=== PATIENT | female | born 1975 | race Caucasian/White ===

== ENCOUNTER 2020-05-19 03:17 | Emergency (ER) | payer BC, SELFPAY ==
--- NOTE | ~2020-05-19 | CT_ITS ---
EXAMINATION: CT abdomen pelvis w con DATE: 05/19/2020 04:36 INDICATION: Lower abdominal pain for 2 hours. Bloating. TECHNIQUE: Computed tomography (CT) of the abdomen and pelvis was performed with 100 cc Omnipaque 350 intravenous contrast. Automated exposure control and iterative reconstruction technique were employe d. Exam dose: 262.28 mGy-cm total exam DLP. COMPARISON: None. FINDINGS: The lung bases are clear. Normal heart size. No pericardial or pleural effusion. The liver, gallbladder, bile ducts, spleen, pancreas and pancreatic duct as well as adrenal glands an d kidneys appear normal. Normal caliber of the abdominal aorta. No intraperitoneal or retroperitoneal or pelvic mass lesion or adenopathy or ascites. Prominent amount of fecal material in the rectum and colon but no bowel obstruction, pneumatosis or i ntraperitoneal free air. There is suggestion of some thickening of the wall of the descending and sig moid colon subtle pericolic fat stranding which might indicate colitis. Clinical correlation is advis ed. The uterus, adnexal areas and urinary bladder are unremarkable. Severe degenerative disease at L5-S1. IMPRESSION: Prominent amount fecal material in the rectum and colon but no bowel obstruction Mild nonspecific thickening of the wall of the sigmoid and descending colon; colitis is not excluded Severe degenerative disc disease at L5-S1 Reviewed, dictated and finalized at [facility]. Reviewed, dictated and finalized at [facility]. IMPRESSION: Prominent amount fecal material in the rectum and colon but no bow el obstruction Mild nonspecific thickening of the wall of the sigmoid and descending colon; co litis is not excluded Severe degenerative disc disease at L5-S1
[2020-05-19 03:20] VITALS: BP 154/79; PULSE 95; RESP 20; TEMP 36.6; O2SAT 99
[2020-05-19] MEDS: ONDANSETRON INJ 4 MG/2 ML VIAL IV PUSH (03:32)
[2020-05-19] MEDS: MORPHINE SULFATE (*CRX) 4 MG/ML INJ IV PUSH (03:32)
[2020-05-19 03:51] LABS: Basophils Absolute Auto 0.02 K/mm3 (0.00-0.10); Basophils Percent Auto 0.3 % (0.0-1.0); Eosinophils Absolute Auto 0.17 K/mm3 (0.02-0.50); Eosinophils Percent Auto 2.6 % (1.0-6.0); Hematocrit 41.3 % (35.0-49.0); Hemoglobin 13.7 g/dL (12.0-15.0); Immature Granulocyte Absolute 0.03 K/mm3 (0.00-0.00); Immature Granulocyte Percent A 0.5 % (0.0-0.0); Lymphocytes Absolute Auto 1.49 K/mm3 (1.10-4.50); Mean Corpuscular HGB Conc 33.2 g/dL (32.0-36.0); Mean Corpuscular Hemoglobin 29.8 pg (27.0-31.0); Mean Platelet Volume 10.3 fl (9.2-11.8); Monocytes Absolute Auto 0.48 K/mm3 (0.10-0.90); Monocytes Percent Auto 7.4 % (2.0-11.0); Neutrophils Absolute Auto 4.3 K/mm3 (1.7-7.2); Neutrophils Percent Auto 66.2 % (50.0-70.0); Platelet Count Result 192 K/mm3 (150-420); Red Blood Count 4.59 M/mm3 (4.20-5.40); Red Cell Distribution Width 12.4 % (11.6-14.4); White Blood Count 6.5 K/mm3 (4.8-10.8)
[2020-05-19 04:09] LABS: Alanine Aminotransferase 24 U/L (14-59); Albumin Level 3.8 g/dL (3.4-5.0); Alkaline Phosphatase 42 U/L (46-116); Anion Gap 15 mmol/L (8-16); Aspartate Amino Transferase 14 U/L (15-37); Bilirubin,Total 0.5 mg/dL (0.00-1.00); Blood Urea Nitrogen 11 mg/dL (7-18); Carbon Dioxide 25 mmol/L (21-32); Chloride 103 mmol/L (98-108); Estimated CRCL calculation 48 ml/min; Estimated Glomerular Filt Rate 56; Glucose 117 mg/dL (70-99); Lipase 186 U/L (73-393); Osmolality Calculated 296 mOsm/kg (285-295); Potassium 3.7 mmol/L (3.5-5.1); Sodium 143 mmol/L (136-145); Total Protein 7.1 g/dL (6.4-8.2)
[2020-05-19 04:11] LABS: Add Urine Microscopic? YES; Appearance Urine Clear (Clear); Bilirubin Urine Negative (Negative); Blood Urine 2+ (Negative); Color Urine Yellow (Yellow); Glucose Urine UA Negative (Negative); Ketones Urine Negative (Negative); Leukocyte Esterase Ur Negative (Negative); Nitrate Urine Negative (Negative); Protein Urine Negative (Negative)
[2020-05-19 04:14] LABS: Pregnancy On Board Control Positive; Urine Pregnancy Test Negative
[2020-05-19 04:17] LABS: Bacteria Urine Trace /hpf; RBC Urine 21-50 /hpf (0-2); Squamous Epithelial Cell Urine None seen /hpf (Few); WBC Urine 0-3 /hpf (0-3)
[2020-05-19] MEDS: SODIUM CHLORIDE 0.9% IV 1,000 ML 999 ML IV CONT (04:31)
[2020-05-19 05:17] VITALS: BP 136/88; PULSE 83; RESP 18; O2SAT 100
--- NOTE | 2020-05-19 05:22 | ED.ABDPAIN ---
HPI - Abdominal Pain General Chief Complaint: Abdominal Pain Stated Complaint: adominal pain Source: patient History of Present Illness HPI narrative: This is a 45-year-old female presents with some abdominal pain lower abdomen periumbilical intense 10/10 with some constipation and episodes of nausea and vomiting. The patient has a history of hypothyroidism and history of depression. Currently there is no fever or chills no dysuria no hematuria no flank pain. The patient has had lower caliber stools today but over the past week has been more constipated. Her abdomen is soft mildly tender with normal bowel sounds. MD elicited complaint: abdominal pain Pertinent past history: constipation Onset (ago): hour(s) Pain Consistency: intermittent Location: periumbilical and suprapubic Severity: severe Pain scale (0-10): 10 Quality: cramping, fullness and sharp Radiation: suprapubic Migration to: periumbilical Exacerbating factors: nothing Relieving factors: medication Associated symptoms: nausea, vomiting and constipation Related Data Home Medications Medication Instructions Recorded Confirmed doxycycline monohydrate 50 mg PO DAILY 05/19/20 05/19/20 ethynodiol diac-eth estradiol 1 tablet PO DAILY 05/19/20 05/19/20 [Kelnor 1-50] levothyroxine 88 mcg PO DAILY 05/19/20 05/19/20 trazodone 100 mg PO HS 05/19/20 05/19/20 venlafaxine 75 mg PO BID 05/19/20 05/19/20 Allergies Allergy/AdvReac Type Severity Reaction Status Date / Time Penicillins Allergy Unknown Verified 05/19/20 03:28 Review of Systems Review of Systems: All systems reviewed & are unremarkable except as noted in HPI and below PMFSH Past Medical History Medical History Hypothyroidism (acquired) Exam Const: General: no acute distress and alert Orientation/consciousness: patient oriented x3 HENMT: Head: normal to inspection Eyes: Conjunctivae: conjunctivae normal Pupils: Equal, round and reactive pupils present EOM: EOMs intact bilaterally Neck: Neck: normal visual inspection, no lymphadenopathy and no meningeal signs Chest: Chest palpation & inspection: normal inspection of the chest Resp: Effort & Inspection: normal respiratory effort Auscultation: clear to auscultation bilaterally Cardio: Rate: regular rate Rhythm: regular rhythm GI: GI Palp: Yes Soft to palpation and Yes Tenderness to palpation present (GI) ( periumbilical and suprapubic area) Auscultation: normal bowel sounds : General: Yes no CVA tenderness Urinary Catheter: Urinary Catheter: patent and draining Back/Spine/Pelvis: Back: no CVA tenderness Skin: General skin exam: normal color Rashes: no rashes Neuro: General: patient oriented x3 Extrem: General: normal to inspection Psych: Mental Status: mental status grossly normal Course Course Emergency Course: reassessment of patient pain level as significantly decreased with currently no nausea or vomiting, patient had lab work which was explained to the patient and results given, and CT scan of her abdomen and pelvis results were reviewed with patient and family. Vital Signs Vital signs: Vital Signs Temperature 36.6 C 05/19/20 03:20 Pulse Rate 95 05/19/20 03:20 Respiratory Rate 20 05/19/20 03:20 Blood Pressure 154/79 H 05/19/20 03:20 Pulse Oximetry 99 05/19/20 03:20 Temperature 36.6 C 05/19/20 03:20 Pulse Rate 83 05/19/20 05:17 Respiratory Rate 18 05/19/20 05:17 Blood Pressure 136/88 05/19/20 05:17 Pulse Oximetry 100 05/19/20 05:17 MDM - Abdominal Pain Lab Data Result diagrams: 05/19/20 03:46 05/19/20 03:46 Labs: Lab Results 05/19/20 05/19/20 05/19/20 Range/Units 03:46 03:46 03:46 WBC 6.5 (4.8-10.8) K/mm3 RBC 4.59 (4.20-5.40) M/mm3 Hgb 13.7 (12.0-15.0) g/dL Hct 41.3 (35.0-49.0) % MCV 90.0 (78.0-102.0) fL MCH 29.8 (27.0-31.0) pg MCHC 33.2 (32.0
[2020-05-19 05:25] VITALS: BP 130/75; PULSE 82; RESP 20; TEMP 36.6; O2SAT 100
[2020-05-19 06:50] LABS: Reflex Lactic Acid Yes or No Add Lactic
== END 2020-05-19 05:35 | disposition home or self-care (01) ==
PROVIDERS: Emergency Provider Emergency Medicine
DX: K52.9 Noninfective gastroenteritis and colitis, unspecified (principal); K59.00 Constipation, unspecified
CPT/HCPCS: 36415; 74177; 80053; 81001; 81025; 83605; 83690; 85025; 85610; 96361; 96374; 96375; 99283; 99284; J2270; J2405; J7030; Q9965

== ENCOUNTER 2020-06-22 15:57 | Outpatient (CLI) | payer BC, SELFPAY ==
[2020-06-22 17:16] LABS: Erythrocyte Sedimentation Rate 6 mm/hr (0-15)
[2020-06-22 17:43] LABS: CRP < 0.2 mg/dL (0.0-0.9)
[2020-06-27 06:04] LABS: Immunoglobulin E 5 kU/L (<=114)
[2020-06-27 11:15] LABS: Immunoglobulin A 194 mg/dL (47-310); Immunoglobulin G 1019 mg/dL (600-1640); Immunoglobulin M 46 mg/dL (50-300)
[2020-06-27 22:30] LABS: ANA Titer 1:40 (Negative); Anti Nuclear Antibody Titer 1:40 (Negative)
[2020-06-28 11:25] LABS: Reference Lab Test Name TRYPTASE
[2020-06-28 12:12] LABS: Gliadin AB, IgG 4 Units (<20); Reticulin IgA Negative (Negative); TTG IGA AB 1 U/mL (<4)
== END 2020-06-22 15:58 | disposition home or self-care (01) ==
PROVIDERS: PCP Family Medicine
DX: D47.09 Other mast cell neoplasms of uncertain behavior (principal); T78.1XXD Other adverse food reactions, not elsewhere classified, subsequent encounter; M35.9 Systemic involvement of connective tissue, unspecified; K90.0 Celiac disease; L29.9 Pruritus, unspecified
CPT/HCPCS: 36415; 82784; 82785; 83088; 83516; 83520; 85652; 86003; 86038; 86039; 86140; 86255

== ENCOUNTER 2020-07-20 10:32 | Outpatient (CLI) | payer BC, SELFPAY ==
[2020-07-20 10:49] LABS: Appearance Urine Clear (Clear); Bilirubin Urine Negative (Negative); Color Urine Yellow (Yellow); Glucose Urine UA Negative (Negative); Ketones Urine Negative (Negative); Leukocyte Esterase Ur Negative (Negative); Nitrate Urine Negative (Negative); Protein Urine Negative (Negative); Specific Grav Ur <= 1.005 (1.010-1.020); Urobilinogen Urine 0.2 mg/dL (0.2-1.0); pH Urine 5.5 (5.0-8.0)
[2020-07-20 10:53] LABS: Add Urine Microscopic? YES; Bacteria Urine Trace /hpf; Blood Urine Trace-lysed (Negative); RBC Urine 0-2 /hpf (0-2); Squamous Epithelial Cell Urine Few /hpf (Few); WBC Urine 0-3 /hpf (0-3)
[2020-07-20 11:22] LABS: Alanine Aminotransferase 22 U/L (14-59); Albumin Level 3.7 g/dL (3.4-5.0); Alkaline Phosphatase 34 U/L (46-116); Anion Gap 7 mmol/L (8-16); Aspartate Amino Transferase 17 U/L (15-37); Bilirubin,Total 0.5 mg/dL (0.00-1.00); Blood Urea Nitrogen 10 mg/dL (7-18); Calcium 8.5 mg/dL (8.5-10.1); Carbon Dioxide 27 mmol/L (21-32); Chloride 101 mmol/L (98-108); Estimated Glomerular Filt Rate > 60; Glucose 91 mg/dL (70-99); Osmolality Calculated 279 mOsm/kg (285-295); Potassium 3.9 mmol/L (3.5-5.1); Sodium 135 mmol/L (136-145); Total Protein 6.8 g/dL (6.4-8.2)
== END 2020-07-20 10:33 | disposition home or self-care (01) ==
PROVIDERS: PCP Family Medicine
DX: R94.4 Abnormal results of kidney function studies (principal)
CPT/HCPCS: 36415; 80053; 81001

== ENCOUNTER 2020-08-08 15:59 | Outpatient (CLI) | payer BC, SELFPAY ==
[2020-08-08 16:15] LABS: Add Urine Microscopic? NO; Appearance Urine Clear (Clear); Bilirubin Urine Negative (Negative); Blood Urine Negative (Negative); Color Urine Straw (Yellow); Glucose Urine UA Negative (Negative); Ketones Urine Negative (Negative); Leukocyte Esterase Ur Negative (Negative); Nitrate Urine Negative (Negative); Protein Urine Negative (Negative); Urobilinogen Urine 0.2 mg/dL (0.2-1.0); pH Urine 5.5 (5.0-8.0)
== END 2020-08-08 16:00 | disposition home or self-care (01) ==
PROVIDERS: PCP Family Medicine
DX: R31.9 Hematuria, unspecified (principal)
CPT/HCPCS: 81003

== ENCOUNTER 2020-08-11 00:24 | Outpatient (CLI) | payer BC, SELFPAY ==
[2020-08-11 17:38] LABS: SARS-CoV-2 RNA PCR Negative
== END 2020-08-11 00:25 | disposition home or self-care (01) ==
LOC: ANHCOVIDDT 00:25
PROVIDERS: PCP Family Medicine; Visit Provider Internal Medicine Gastroenterology
DX: Z01.812 Encounter for preprocedural laboratory examination (principal); Z20.822 Contact with and (suspected) exposure to COVID-19
CPT/HCPCS: C9803; U0003; U0005

== ENCOUNTER 2020-08-14 01:42 | Day surgery (SDC) | payer BC, SELFPAY ==
[2020-07-27 13:40] VITALS: BMI 22.4
--- NOTE | 2020-08-09 12:07 | PC.NURSE ---
PT RESCHED. FROM 08/07/20-REVIEWED INFORMATION, PT DENIES ANY CHANGES
[2020-08-14 06:27] VITALS: BP 110/89; PULSE 65; RESP 20; TEMP 36.4; BMI 22.4
--- NOTE | 2020-08-14 06:45 | P.PNAN_ITS ---
Anes - Initial Pre Proc Eval Procedure: Operation Date: 08/14/20 07:30 Proposed Procedures p Esophagogastroduodenoscopy - Wil Humphreys MD Date/Time: 08/14/20 06:45 Surgeon: Wil Humphreys MD Pre Op Diagnosis: GERD Patient Data Age: 45 Gender: F Height: 1.7 m Weight: 65 kg Last Vital Signs Temp 36.4 C 08/14/20 06:27 Pulse 65 08/14/20 06:27 Resp 20 08/14/20 06:27 BP 110/89 08/14/20 06:27 Allergies Allergy/AdvReac Type Severity Reaction Status Date / Time Penicillins Allergy Anaphylaxis Verified 08/14/20 06:24 Home Medications Medication Instructions Recorded Confirmed Type doxycycline monohydrate 50 mg PO DAILY 05/19/20 08/09/20 History ethynodiol diac-eth estradiol 1 tablet PO DAILY 05/19/20 08/09/20 History [Kelnor 1-50] trazodone 100 mg PO HS 05/19/20 08/09/20 History venlafaxine 75 mg PO BID 05/19/20 08/09/20 History levothyroxine 100 mcg PO DAILY 07/27/20 08/09/20 History Patient hx anesthesia problems: none Family hx anesthesia problems: none [facility] Past Medical History Medical History Hypothyroidism (acquired) Social History Social History Smoking status: Never smoker Alcohol intake: current Drinks per week: 2 Substance use type: does not use Living arrangements: with family Spiritual care concerns: No Anes - Eval Final PreProcedure Day of Procedure 08/14/20 06:45 Patient weight: normal Heart: regular rate and rhythm Lungs: clear to auscultation and normal air movement Airway: Mallampati scale class II Neurological: alert and oriented Last oral intake: >/= 8 hours ASA classification: II Emergent: no Anesthetic plan: proceed Anesthesia type and monitoring: general GIVS and standard monitoring Informed Consent: The patient's anesthetic plan and its attendant risks and benefits were discussed with the patient/family/POA. Questions were solicited and answers provided to the satisfaction of the patient/family/POA.
[2020-08-14] MEDS: LACTATED RINGERS 1,000 ML 30 ML IV CONT (07:33)
[2020-08-14] MEDS: BENZOCAINE (*SP) 60 ML SPRAY CAN (HURRICAINE) 1 SPRAY MUCOUS MEM (07:34)
--- NOTE | 2020-08-14 07:41 | WPDGICN ---
Assessment and Plan Assessment and plan (1) Epigastric abdominal pain: Code(s): R10.13 - Epigastric pain Status: Acute Assessment and Plan: Patient has epigastric and substernal pain. Appears to be worse after drinking citrus drinks. She has had some improvement proton pump inhibitor therapy because of ongoing symptoms an EGD will be performed. Suspect this represents dyspepsia may represent underlying acid reflux disease. GI Consult Note Consult date/time: 08/14/20 07:41 HPI: Ruma Nick is a 45 year old female Seen in evaluation at the request Dr. Demario Lambert. Patient reports substernal burning chest pain. Associated with cough. This will cause her to clear throat rather 3 frequently. She states discomfort occurs with taking rather deep breaths. She denies any dysphagia. She denies any weight loss. She has had no bleeding. He is taken pantoprazole 40 mg p.o. daily over the last 1 month with some modest improvement symptoms. Symptoms have not this appeared yet. Patient presents today for EGD for further evaluation of these symptoms. Patient reports symptoms have intensified on taking citrus drinks. Flavored water particularly. She she also notes pain in the mid epigastric area. Family history is noncontributory. Past medical history is significant for partial thyroidectomy. She subsequently has on thyroid replacement. Review of Systems Review of Systems: All systems reviewed & are unremarkable except as noted in HPI and below PMFSH Past Medical History Medical History Hypothyroidism (acquired) Social History Social History Smoking status: Never smoker Alcohol intake: current Drinks per week: 2 Substance use type: does not use Living arrangements: with family Spiritual care concerns: No Meds Home Medications and Allergies Home Medications Medication Instructions Recorded Confirmed Type doxycycline monohydrate 50 mg PO DAILY 05/19/20 08/09/20 History ethynodiol diac-eth estradiol 1 tablet PO DAILY 05/19/20 08/09/20 History [Kelnor 1-50] trazodone 100 mg PO HS 05/19/20 08/09/20 History venlafaxine 75 mg PO BID 05/19/20 08/09/20 History levothyroxine 100 mcg PO DAILY 07/27/20 08/09/20 History Allergies Allergy/AdvReac Type Severity Reaction Status Date / Time Penicillins Allergy Anaphylaxis Verified 08/14/20 06:24 Vital Signs Vital Signs - 24 hr 08/14/20 06:27 Temperature 97.6 F Pulse Rate 65 Respiratory Rate 20 Blood Pressure 110/89 Exam Narrative: Exam Narrative: Physical exam reveals patient to be alert. Vital signs stable. HEENT exam is unremarkable. Lungs are clear to auscultation and percussion. Heart is without murmur or extra sounds. Abdominal exam bowel sounds are present soft nontender with no organomegaly. Digital external rectal exam deferred day of exam.
[2020-08-14 07:43] VITALS: BP 102/73; PULSE 64; RESP 26; O2SAT 99
[2020-08-14 07:53] VITALS: BP 123/91; PULSE 63; RESP 15; O2SAT 99
[2020-08-14 08:03] VITALS: BP 124/92; PULSE 60; RESP 15; O2SAT 100
== END 2020-08-14 08:21 | disposition home or self-care (01) ==
PROVIDERS: PCP Family Medicine; Visit Provider Internal Medicine Gastroenterology
PROC: 0DJ08ZZ Inspection of Upper Intestinal Tract, Via Natural or Artificial Opening Endoscopic (ICD-10-PCS; CPT 43235; principal; 2020-08-14 07:30)
DX: K22.10 Ulcer of esophagus without bleeding (principal); E03.9 Hypothyroidism, unspecified
CPT/HCPCS: 43239; 87081; J2704; J7120

== ENCOUNTER 2022-03-19 16:25 | Outpatient (CLI) | payer BC, SELFPAY ==
--- NOTE | ~2022-03-19 | MM_ITS ---
EXAMINATION: MM screening gorge BI w margarita HISTORY: Screening mammogram TECHNIQUE: Craniocaudal and mediolateral oblique 3-D tomosynthesis images were obtained and synthetic 2-D images were generated. CAD analysis was submitted and interpreted. COMPARISON: No prior mammogram is available for comparison at this institution. BREAST PARENCHYMAL COMPOSITION: The breasts are extremely dense, which lowers the sensitivity of mamm ography. FINDINGS: There is no suspicious mass, calcification, or architectural distortion to suggest malignan cy in either breast. IMPRESSION: 1. No mammographic evidence of malignancy. 2. Recommend routine screening mammography in one year. BI-RADS Category 1: Negative Reviewed, dictated and finalized at location [facility].
== END 2022-03-19 16:26 | disposition home or self-care (01) ==
PROVIDERS: PCP Family Medicine; Visit Provider Nurse Practitioner Obstetrics & Gynecology
DX: Z12.31 Encounter for screening mammogram for malignant neoplasm of breast (principal)
CPT/HCPCS: 77063; 77067

== ENCOUNTER → 2023-05-12 15:41 | Outpatient (CLI) | payer BC, SELFPAY ==
--- NOTE | ~2023-05-12 | MM_ITS ---
EXAMINATION: MM screening gorge BI w margarita HISTORY: Screening mammogram TECHNIQUE: Craniocaudal and mediolateral oblique 3-D tomosynthesis images were obtained and synthetic 2-D images were generated. CAD analysis was submitted and interpreted. COMPARISON: 03/19/2022 bilateral screening mammogram BREAST PARENCHYMAL COMPOSITION: The breasts are extremely dense, which lowers the sensitivity of mamm ography. FINDINGS: There is no evidence of suspicious mass, calcification, or architectural distortion to sugg est malignancy in either breast. There has been no suspicious interval change. IMPRESSION: 1. No mammographic evidence of malignancy. 2. Recommend routine screening mammography in one year. BI-RADS Category 1: Negative Reviewed, dictated and finalized at location [facility].
== END ==
PROVIDERS: PCP Nurse Practitioner Obstetrics & Gynecology; Visit Provider Nurse Practitioner Obstetrics & Gynecology
DX: Z12.31 Encounter for screening mammogram for malignant neoplasm of breast (principal)
CPT/HCPCS: 77063; 77067

== ENCOUNTER 2024-04-21 15:59 | Outpatient (CLI) | payer BC, SELFPAY ==
--- NOTE | ~2024-04-21 | XR_ITS ---
EXAMINATION: XR shoulder LT min 2V DATE: 04/21/2024 16:34 INDICATION: Left shoulder injury. TECHNIQUE: 3 views of left shoulder were obtained. COMPARISON: None. FINDINGS: Alignment is normal. No fracture. There is mild osteoarthritis of glenohumeral joint and ac romioclavicular joint. IMPRESSION: 1. Mild polyarticular osteoarthritis. Reviewed, dictated and finalized at [facility].
== END 2024-04-21 16:00 | disposition home or self-care (01) ==
LOC: CHSIMG 16:04
PROVIDERS: PCP Family Medicine; Visit Provider Family Medicine
DX: M19.012 Primary osteoarthritis, left shoulder (principal); S49.92XA Unspecified injury of left shoulder and upper arm, initial encounter
CPT/HCPCS: 73030

== ENCOUNTER 2024-04-29 15:20 | Outpatient (RCR) | payer BC, SELFPAY ==
--- NOTE | 2024-04-29 16:58 | OPREHPOC ---
Outpatient Therapy Plan of Care This is a Multidisciplinary Plan of Care that may contain components documented by all disciplines (PT, OT, and ST.) PT Problem 1 PT Problem #1 Knowledge Deficit PT Goal 1 Goal / Goal Update 1. independent and compliant with HEP Target Visit 6 PT Problem 2 PT Problem #2 Pain PT Goal 1 Goal / Goal Update 1. 2/10 or less pain at worst in the L shoulder Target Visit 12 PT Problem 3 PT Problem #3 Impaired Range of Motion PT Goal 1 Goal / Goal Update 1. 160 degrees active L shoulder abduction 2. 90 degrees active L shoulder ER 3. 70 degrees active L shoulder IR Target Visit 12 PT Problem 4 PT Problem #4 Impaired Strength PT Goal 1 Goal / Goal Update 1. 5/5 L shoulder flex 2. 5/5 L shoulder abd 3. 5/5 L elbow extension Target Visit 12 PT Problem 5 PT Problem #5 Impaired Functional Mobil PT Goal 1 Goal / Goal Update 1. patient to return to yoga and workouts at home to improve her quality of life 2. quick dash to display 10% or less functional defictis Target Visit 12
--- NOTE | 2024-04-29 16:58 | PTOPEVAL1 ---
Assessment and note entered by JT File, PT Evaluation Information Assessment Status Evaluation ICD-10 Condition Codes (PT) M25.512 Onset 02/15/24 Subjective Information patient reports she fell down her steps at home. she reports she went to reach out and stop her fall with her L arm. she reports she felt a pop in the shoulder. she reports she is active and does yoga and lifts weights. she reports it has been challenging since this fall. she reports it has not improved. she reports she has had an XRAY of the L shoulder. she reports she is unable to get an MRI without coming to PT. she reports she has throbbing in the L shoulder after working. she reports she cannot reach behind the opposite shoulder. she reports she is unable to rest with the arm away from her side when laying on her stomach, and she has pain with reaching back behind her with the L shoulder in 90 abduction position. 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 she reports prior to the fall she had full mobility, no pain, and no weakness in the arm. Reported Pain Level Pain Score 3: Self Report Assessment PT Clinical Summary mrs. quiroz is a 48 yo woman who presents to skilled PT services for evaluation and treatment of L shoulder pain following a fall. she presents today with decreased L shoulder rom, L shoulder weakness, pain with movement/use, and special tests that indicate a potential injury to the labrum of the L shoulder. she would benefit from continued skilled PT to address her objective/ functional deficits and return to her prior level functional activity performance/quality of life. Plan of Care Interventions Electrical Stimulation,Hot Pack/Cold Pack,Manual Therapy,Neuro Re-education,Patient/Caregiver Educati,Therapeutic Activities,Therapeutic Exercise PT Services Indicated Yes Treatment Frequency and 2x weekly for 12 visits Duration These treatments will address the objective and functional deficits as defined above. The patient will be advanced safely and appropriately in order for the patient to progress towards his/her prior level of function. Additional exercises will be introduced and as well as a comprehensive home exercise program upon discharge, if needed, ?to ensure carryover of functional gains achieved in the clinic. This treatment plan has been reviewed and agreement upon by the patient.
--- NOTE | 2024-05-10 15:09 | PCPTNOTE ---
Cancelled session. Busy day at work and can't make it in today.
--- NOTE | 2024-06-02 17:12 | OPREHPOC ---
Outpatient Therapy Plan of Care This is a Multidisciplinary Plan of Care that may contain components documented by all disciplines (PT, OT, and ST.) PT Problem 1 PT Problem #1 Knowledge Deficit PT Goal 1 Goal / Goal Update 1. independent and compliant with HEP Target Visit 6 Progress Met PT Problem 2 PT Problem #2 Pain PT Goal 1 Goal / Goal Update 1. 2/10 or less pain at worst in the L shoulder Target Visit 12 Progress Not Met PT Problem 3 PT Problem #3 Impaired Range of Motion PT Goal 1 Goal / Goal Update 1. 160 degrees active L shoulder abduction 2. 90 degrees active L shoulder ER 3. 70 degrees active L shoulder IR Target Visit 12 Progress Not Met PT Problem 4 PT Problem #4 Impaired Strength PT Goal 1 Goal / Goal Update 1. 5/5 L shoulder flex 2. 5/5 L shoulder abd 3. 5/5 L elbow extension Target Visit 12 Progress Not Met PT Problem 5 PT Problem #5 Impaired Functional Mobil PT Goal 1 Goal / Goal Update 1. patient to return to yoga and workouts at home to improve her quality of life 2. quick dash to display 10% or less functional defictis Target Visit 12 Progress Partially Met
--- NOTE | 2024-06-02 17:12 | PTOPPROG ---
Assessment and note entered by Yenni Vu, PT Evaluation Information Assessment Status Progress ICD-10 Condition Codes (PT) M25.512 Onset 02/15/24 Subjective Information Ruma Nick reports she is having less pain and feels she can move a little better. She does still have pain trying to move her arm back like she is going to throw something and reaching behind her back. She went to the doctor on 06/01/24 and was referred to have a MRI. She would like to put PT on hold until she has the MRI. Assessment PT Clinical Summary Ruma Nick has completed 10 skilled PT visits for left shoulder pain. She is reporting less intense pain and improve mobility in the left shoulder however, she still has trouble with combined abduction and ER. She went to her doctor on and a MRI was ordered. She is demonstrating improved left shoulder ROM and strength. She continues to have positive special tests for impingement and possible supraspinatus muscle involvement. She would like to PT on hold until her MRI. Plan of Care Interventions Electrical Stimulation,Hot Pack/Cold Pack,Manual Therapy,Neuro Re-education,Patient/Caregiver Educati,Therapeutic Exercise PT Services Indicated Yes Treatment Frequency and PT on hold until MRI Duration These treatments will address the objective and functional deficits as defined above. The patient will be advanced safely and appropriately in order for the patient to progress towards his/her prior level of function. Additional exercises will be introduced and as well as a comprehensive home exercise program upon discharge, if needed, ?to ensure carryover of functional gains achieved in the clinic. This treatment plan has been reviewed and agreement upon by the patient.
== END 2024-06-02 17:20 | disposition home or self-care (01) ==
LOC: CHSPT 15:20
PROVIDERS: Visit Provider Family Medicine
DX: S49.92XA Unspecified injury of left shoulder and upper arm, initial encounter (principal)
CPT/HCPCS: 97014; 97110; 97112; 97140; 97161; 97750; G0283

== ENCOUNTER 2024-05-17 15:41 | Outpatient (CLI) | payer BC, SELFPAY ==
--- NOTE | ~2024-05-17 | MM_ITS ---
EXAMINATION: MM screening gorge BI w margarita HISTORY: Screening mammogram TECHNIQUE: Craniocaudal and mediolateral oblique 3-D tomosynthesis images were obtained and synthetic 2-D images were generated. CAD analysis was submitted and interpreted. COMPARISON: 05/12/2023, 03/19/2022 BREAST PARENCHYMAL COMPOSITION:Dense: The breasts are extremely dense, which lowers the sensitivity o f mammography. FINDINGS: No suspicious mass, calcification, or architectural distortion are identified in either penelope ast to suggest malignancy. There has been no suspicious interval change. IMPRESSION: No mammographic evidence of malignancy. Recommend routine screening mammography in one year. BI-RADS Category 1: Negative Reviewed, dictated and finalized at location [facility].
== END 2024-05-17 15:42 | disposition home or self-care (01) ==
PROVIDERS: PCP Nurse Practitioner Obstetrics & Gynecology; Visit Provider Nurse Practitioner Obstetrics & Gynecology
DX: Z12.31 Encounter for screening mammogram for malignant neoplasm of breast (principal)
CPT/HCPCS: 77063; 77067

== ENCOUNTER 2025-05-23 15:46 | Outpatient (CLI) | payer BC, SELFPAY ==
--- NOTE | ~2025-05-23 | MM_ITS ---
EXAMINATION: MM screening gorge BI w margarita HISTORY: Screening TECHNIQUE: Craniocaudal and mediolateral oblique 3-D tomosynthesis images were obtained and synthetic 2-D images were generated. CAD analysis was submitted and interpreted. COMPARISON: Comparison to multiple prior studies sequentially, with oldest reviewed study dated , 03/19/2022 BREAST PARENCHYMAL COMPOSITION: The breasts are extremely dense, which lowers the sensitivity of mammography. FINDINGS: There is no evidence of suspicious mass, calcification, or architectural distortion to suggest malignancy in either breast. IMPRESSION: 1. No mammographic evidence of malignancy. 2. Recommend routine screening mammography in one year. BI-RADS Category 1: Negative Reviewed, dictated and finalized at [facility]. [employer]
== END 2025-05-23 15:47 | disposition home or self-care (01) ==
LOC: MICIMG 15:47
PROVIDERS: PCP Student in an Organized Health Care Education/Training Program; Visit Provider Student in an Organized Health Care Education/Training Program
DX: Z12.31 Encounter for screening mammogram for malignant neoplasm of breast (principal)
CPT/HCPCS: 77063; 77067